=== PATIENT | female | born 1995 | race Caucasian/White ===

== ENCOUNTER 2017-04-10 23:03 | Emergency (ER) | payer OTHER ==
--- NOTE | ~2017-04-10 | ER ---
[facility] AGE[facility] 21 Y [address] ROOM: [place] [address] LOCATION: [facility] ADMIT DATE: 04/10/2017 ER/Outpatient Report DISCHARGE DATE: 04/10/2017 FAMILY PHYSICIAN: Chio Forman MD ATTENDING PHYSICIAN: Rob Gao Admission date and time documented in the medical record. I saw the patient at 2315 hours. CHIEF COMPLAINT: Suspected snack bite, left foot. HISTORY OF PRESENT ILLNESS: This patient is a 21-year-old female who was with a friend, walking and then stepped out on the grass, and felt a sting in her left foot. Noted to have 2 puncture wounds on the inner aspect of her left great toe behind the MP joint. It happened about an hour and a half prior to admission to the emergency room. Father brought the patient in for further evaluation. No other injuries. No other complaints. HOME MEDICATIONS: control pill. ALLERGIES: NONE. SOCIAL HISTORY: Nonsmoker and nondrinker. SIGNIFICANT PAST MEDICAL HISTORY: Reactive arthritis and anemia. OPERATIONS: None. REVIEW OF SYSTEMS: All systems reviewed by me are negative with the exception of those discussed in the history of present illness. Immunizations are up-to-date. PHYSICAL EXAMINATION: VITAL SIGNS: Temperature 98.4, pulse 101, respirations 18, blood pressure 130/87, and O2 saturation on room air is 97%. EXTREMITIES: On examination, the patient has 2 puncture wounds about 2.5 cm apart in the inner aspect of her left foot, behind the MP joint of the great toe. There is no swelling. There is no surrounding redness. There is no red PATIENT'S NAME: EDA CESAR [facility] AGE: 21 Y [address] ROOM: [place] [address] LOCATION: [facility] ADMIT DATE: 04/10/2017 ER/Outpatient Report DISCHARGE DATE: 04/10/2017 FAMILY PHYSICIAN: Chio Forman MD ATTENDING PHYSICIAN: Rob Gao streaking. Some mild tenderness. NEUROVASCULAR: Intact. Pulse intact. No other abnormalities on physical exam. IMPRESSION: Suspected snake bite to left great toe area just proximal behind the MP joint on the inner aspect of her left foot. PLAN: The patient dismissed home. Observation. Activity as tolerated. Watch for redness, swelling, red streaking, increased pain, fever, or chills. If any of these occur, return to the emergency room or follow up with personal physician. Discussed ensued with the patient and her father in regard to my findings and recommendations, they understand. MD MIYA MCGEE/denisha /[id number] d: 04/11/17 0326 t: 04/11/17 1809, OUTPATIENT REPORT
== END 2017-04-10 23:36 | disposition disaster alternative care site (69) ==
LOC: GACC 23:03
DX: S91.332A Puncture wound without foreign body, left foot, initial encounter (principal); D64.9 Anemia, unspecified; M19.90 Unspecified osteoarthritis, unspecified site; Z98.890 Other specified postprocedural states; X58.XXXA Exposure to other specified factors, initial encounter; Y93.01 Activity, walking, marching and hiking